=== PATIENT | female | born 1985 | race Caucasian/White ===

== ENCOUNTER 2017-07-28 21:43 | Inpatient (IN) | payer OTHER ==
[~2017-07-28] VITALS: Ht 172.7 cm; Wt 132.5 kg
[~2017-07-28 21:43] MED LIST: CHEWABLE-VITE1 EACH PO; HYDROCHLOROTH12.5 M3 PO; SEASONIQUE 01 TABLET PO; ZOLOFT50 MG PO
[2017-07-29 07:31] VITALS: BP 134/83
[2017-07-29 07:44] LABS: POINT-OF-CARE METER ID UU14174212
[2017-07-29 12:19] VITALS: BP 165/100
[2017-07-29 12:24] LABS: POINT-OF-CARE METER ID UU14314084
[2017-07-29 16:45] VITALS: BP 135/81
[2017-07-29 18:17] LABS: POINT-OF-CARE METER ID UU14208750
[2017-07-29 19:29] VITALS: BP 144/88
[2017-07-29 23:23] VITALS: BP 160/80
[2017-07-30 00:09] LABS: POINT-OF-CARE METER ID UU14162508
[2017-07-30 03:58] VITALS: BP 138/82
[2017-07-30 05:43] LABS: POINT-OF-CARE METER ID UU14162508
[2017-07-30 05:45] LABS: HEMATOCRIT 40.2 % (36.0-46.0); MCH 28.1 PG (29.0-34.0); MCHC 32.1 G/DL (30.0-36.0); MCV 87.6 FL (83-99); MEAN PLAT.VOLUME 10.5 uM^3 (9.5-12.4); PLATELET COUNT 246 K/uL (156-360); RBC DIS.WIDTH-CV 12.9 % (11.8-14.6); RBC DIS.WIDTH-SD 40.7 % (39-53); RED BLOOD COUNT 4.59 M/uL (3.80-5.20); WHITE BLOOD COUNT 12.8 K/uL (4.1-10.2)
[2017-07-30 06:25] LABS: ANION GAP 7 MEQ/L (2-14); CHLORIDE 104 MEQ/L (99-109); GFR ESTIMATE (CALCULATED) > 59 mL/min/; GLUCOSE 113 mg/dL (70-99); MAGNESIUM 1.6 mg/dl (1.3-2.7); SAMPLE HEMOLYSIS CHECK 0; SAMPLE ICTERIC CHECK 0; SAMPLE LIPEMIA CHECK 0; SODIUM 138 MEQ/L (136-147); UREA NITROGEN (BUN) 11 mg/dL (9-23)
[2017-07-30 07:36] VITALS: BP 137/74
[2017-07-30 11:30] VITALS: BP 159/90
[2017-07-30 12:47] LABS: POINT-OF-CARE METER ID UU14314084
[2017-07-30] MEDS ORDERED: NORCO 5/3251 TABLET PO (13:41)
[2017-07-30] MEDS ORDERED: PANTOPRAZOLE SO40 MG PO (13:41)
[2017-07-30] MEDS ORDERED: ZOFRAN4 MG PO (13:41)
[2017-07-30] MEDS ORDERED: CARAFATE100 MG/ML PO (13:42)
== END 2017-07-30 15:03 | disposition home or self-care (01) | DRG 621 ==
LOC: ENRESERV 21:43 → 2SOUTH 07-29 06:52 → ENRESERV 07-29 08:40 → 2SOUTH 07-29 09:55 → 2EAST 07-29 11:54 → 2SOUTH 07-29 16:18 → 2EAST 07-30 15:03
PROVIDERS: Surgery
PROC: 0DB64Z3 Excision of Stomach, Percutaneous Endoscopic Approach, Vertical (ICD-10-PCS; principal; 2017-07-29)
DX: E66.01 Morbid (severe) obesity due to excess calories (principal); Z68.41 Body mass index [BMI] 40.0-44.9, adult; F32.9 Major depressive disorder, single episode, unspecified; F41.9 Anxiety disorder, unspecified; I10 Essential (primary) hypertension; G43.909 Migraine, unspecified, not intractable, without status migrainosus; Z88.0 Allergy status to penicillin; Z88.1 Allergy status to other antibiotic agents
CPT/HCPCS: 80048; 82948; 83735; 84100; 85027; C9113; J0131; J0330; J1100; J1170; J1580; J1644; J1650; J1815; J2250; J2405; J2550; J3010; J3480; J7050; J7120; Q0175; S0020

== ENCOUNTER 2017-08-02 05:25 | Emergency (ER) | payer OTHER ==
[~2017-08-02] VITALS: Ht 172.7 cm; Wt 129.8 kg
[~2017-08-02 05:25] MED LIST changes: +CARAFATE100 MG/ML PO; +NORCO 5/3251 TABLET PO; +PANTOPRAZOLE SO40 MG PO; +ZOFRAN4 MG PO
[2017-08-02 06:37] LABS: HEMATOCRIT 42.8 % (36.0-46.0); MCH 28.2 PG (29.0-34.0); MCHC 33.2 G/DL (30.0-36.0); MCV 85.1 FL (83-99); MEAN PLAT.VOLUME 10.2 uM^3 (9.5-12.4); PLATELET COUNT 243 K/uL (156-360); RBC DIS.WIDTH-CV 12.6 % (11.8-14.6); RBC DIS.WIDTH-SD 38.3 % (39-53); RED BLOOD COUNT 5.03 M/uL (3.80-5.20); WHITE BLOOD COUNT 10.5 K/uL (4.1-10.2)
[2017-08-02 06:59] LABS: INTER. NORMALIZED RATIO 1.3; PROTHROMBIN TIME 15.1 SEC (10.2-12.9)
[2017-08-02 07:02] LABS: PTT 36.1 SEC (25-37)
[2017-08-02 07:29] LABS: QUANTITATIVE HCG < 4.0 MIU/ML
[2017-08-02 07:36] LABS: ALKALINE PHOSPHATASE 73 IU/L (3-129); ANION GAP 14 MEQ/L (2-14); CHLORIDE 103 MEQ/L (99-109); GFR ESTIMATE (CALCULATED) > 59 mL/min/; GLUCOSE 76 mg/dL (70-99); POTASSIUM 3.8 MEQ/L (3.7-5.4); SAMPLE HEMOLYSIS CHECK 0; SAMPLE ICTERIC CHECK 0; SAMPLE LIPEMIA CHECK 0; SODIUM 140 MEQ/L (136-147); TOTAL BILIRUBIN 0.7 MG/DL (0.0-1.0); UREA NITROGEN (BUN) 18 mg/dL (9-23)
[2017-08-02 08:23] VITALS: BP 131/79
== END 2017-08-02 08:30 | disposition home or self-care (01) ==
LOC: EME 05:25
PROVIDERS: Nurse Practitioner Family
DX: M54.31 Sciatica, right side (principal); Z98.84 Bariatric surgery status; Z98.890 Other specified postprocedural states; M51.37 Other intervertebral disc degeneration, lumbosacral region
CPT/HCPCS: 72100; 80053; 81003; 84702; 84703; 85027; 85379; 85610; 85730; 93971; 99281; 99284

== ENCOUNTER → 2017-09-18 | Outpatient (CLI) | payer OTHER | END | disposition home or self-care (01) | LOC: NUC 07:19 | DX: R11.0 Nausea (principal) | CPT/HCPCS: 78227; A9537; J2805 ==